=== PATIENT | female | born 1960 | race Caucasian/White ===

== ENCOUNTER → 2017-01-22 | Outpatient (CLI) | payer OTHER ==
[~2017-01-22] MED LIST: AVALIDE PO; AZULFIDINE500 M1 PO; BACTRIM DS TABL1 TA1 PO; CITALOPRAM HBR40 MG PO; COMBIVENT U/D3 M2 INH; DOXEPIN; DOXEPIN HCL50 MG PO; FISH OIL 1,0001 CAP PO; FISH OIL500 M1 PO; GLUCOPHAGE850 MG PO; HAIR, SKIN & N1 EACH PO; HYDRALAZINE HC100 MG PO; INVOKANA300 MG PO; IRON325 ( 65 ) PO; KEFLEX500 MG PO; LEVAQUIN PO; LEXAPRO PO; LISINOPRIL PO; LISINOPRIL-HCTZ1 T21 PO; LOPRESSOR PO; LORTAB 5/500 TA1 TA1 PO; METFORMIN PO; METHADONE PO; MULTI VITAMIN1 EACH PO; NEURONTIN PO; PHENERGAN25 MG PO; PRAVACHOL PO; PRAVASTATIN SOD40 MG PO; PRILOSEC40 MG PO; SYMBICORT INH; TAMIFLU75 M1 PO; TOPROL XL; TOPROL XL 50 MG50 M1 PO; ZESTRIL10 M1 PO; ZOLOFT; ZOLOFT PO; ZOLOFT50 MG PO
[2017-01-22 19:27] LABS: URINE APPEARANCE CLEAR; URINE BILIRUBIN NEG (NEG); URINE BLOOD NEG (NEG); URINE COLOR YELLOW; URINE GLUCOSE 500 MG/DL (NEG); URINE KETONE NEG (NEG); URINE LEUKOCYTE ESTERASE NEG (NEG); URINE NITRATE NEG (NEG); URINE PROTEIN NEG (NEG); URINE SPECIFIC GRAVITY 1.008 (1.003-1.035); URINE UROBILINOGEN 0.2 MG/DL (NEG)
[2017-01-22 19:32] LABS: EOSINOPHIL% 1.5 % (0.0-7.0); HEMATOCRIT 36.7 % (35.0-45.0); HEMOGLOBIN 12.1 gm/dL (12.0-16.0); LYMPHOCYTE% 33.9 % (17.0-45.0); MEAN CELL VOLUME 92.3 FL (83-96); MEAN CORPUSCULAR HEMOGLOBIN 30.3 PG (28-34); MEAN CORPUSCULAR HGB CONC 32.9 g/dL (30-36); MEAN PLATELET VOLUME 7.6 FL (6.5-11.5); MONOCYTE# 0.2 X10e3 (0-1.0); MONOCYTE% 7.2 % (3.0-12.0); NEUTROPHIL# 1.6 X10e3 (1.5-7.1); NEUTROPHIL% 56.4 % (40-75); PLATELET COUNT 170 X10e3 (140-420); RED BLOOD COUNT 3.98 X10e (3.90-5.30); RED CELL DISTRIBUTION WIDTH 14.6 % (11.0-15.5); WHITE BLOOD COUNT 2.9 X10e3 (4.0-10.5)
[2017-01-22 19:34] LABS: DIFF IND YES
[2017-01-22 20:07] LABS: PLATELET ESTIMATE NORMAL (NORMAL); RBC NORMAL YES
[2017-01-22 20:13] LABS: CALCIUM SERUM 9.6 mg/dL (8.4-10.2); GLOM FILT RATE Estimated 62.1 mL/min (>60); PHOSPHOROUS 2.8 mg/dL (2.5-4.6); POTASSIUM 3.7 mmol/L (3.5-5.1)
[2017-01-22 20:34] LABS: CREATININE,RANDOM URINE 15 mg/dL; TOTAL PROTEIN,RANDOM URINE <10 mg/dl (<10)
[2017-01-25 15:54] LABS: CALCIUM (PTHINTACT) 9.8 mg/dL (8.6-10.4)
== END | disposition home or self-care (01) ==
LOC: CLAB 18:48
PROVIDERS: Internal Medicine Nephrology
DX: E55.9 Vitamin D deficiency, unspecified (principal); N25.81 Secondary hyperparathyroidism of renal origin; N18.3 Chronic kidney disease, stage 3 (moderate); D63.1 Anemia in chronic kidney disease; R80.9 Proteinuria, unspecified
CPT/HCPCS: 36415; 80048; 81003; 82306; 82310; 82570; 82728; 83540; 83550; 83970; 84100; 84156; 85025

== ENCOUNTER → 2017-04-20 | Outpatient (CLI) | payer OTHER ==
[2017-04-20 19:38] LABS: HEMATOCRIT 39.9 % (35.0-45.0); HEMOGLOBIN 12.9 gm/dL (12.0-16.0); MEAN CELL VOLUME 93.1 FL (83-96); MEAN CORPUSCULAR HEMOGLOBIN 30.2 PG (28-34); MEAN CORPUSCULAR HGB CONC 32.4 g/dL (30-36); MEAN PLATELET VOLUME 7.8 FL (6.5-11.5); RED BLOOD COUNT 4.29 X10e (3.90-5.30); RED CELL DISTRIBUTION WIDTH 13.1 % (11.0-15.5); WHITE BLOOD COUNT 4.3 X10e3 (4.0-10.5)
[2017-04-20 19:52] LABS: CREATININE,RANDOM URINE 89 mg/dL; TOTAL PROTEIN,RANDOM URINE <10 mg/dl (<10)
[2017-04-20 20:36] LABS: BUN/CREATININE RATIO 11.42; CALCIUM SERUM 9.1 mg/dL (8.4-10.2); CREATININE SERUM 1.4 mg/dL (0.6-1.4); GLOM FILT RATE Estimated 41.3 mL/min (>60); POTASSIUM 3.6 mmol/L (3.5-5.1)
[2017-04-25 06:35] LABS: CALCIUM (PTHINTACT) 9.6 mg/dL (8.6-10.4)
== END | disposition home or self-care (01) ==
LOC: CLAB 19:13
PROVIDERS: Internal Medicine Nephrology
DX: E55.9 Vitamin D deficiency, unspecified (principal); N18.2 Chronic kidney disease, stage 2 (mild); D63.1 Anemia in chronic kidney disease; N25.81 Secondary hyperparathyroidism of renal origin
CPT/HCPCS: 36415; 80048; 82306; 82310; 82570; 82728; 83540; 83550; 83970; 84100; 84156; 85027

== ENCOUNTER → 2017-05-09 | Outpatient (CLI) | payer OTHER ==
--- NOTE | ~2017-05-09 | CR61 ---
[facility] A Service of [facility] RADIOLOGY TEXT RESULTS PATIENT: CRISTIAN BLACKBURN LOCATION: [facility] : 56 UNIT #: [id number] AGE: [address]: Pratibha Laws APRN SEX: F ORDER DR: [id number] [facility] [address] [place], [place] [address] [id number] O MR#: [id number] Acc #: [id number] NAME: CRISTIAN BLACKBURN : 1960 SEX: F STUDY DATE/TIME: 05/09/2017 16:07 UNIT: [facility] ROOM: STUDY DESCRIPTION: CR Cervical Spine Min 5 Views Attending Physician: Pratibha Laws A.P.R.N. Referring Physician: Pratibha Laws A.P.R.N. Ordering Physician: Pratibha Laws A.P.R.N. Primary Care Physician: Amy Primary Care Physician MEDICAL IMAGING REPORT This report is preliminary unless electronic signature is present EXAM Cervical spine 05/09/2017. INDICATIONS Chronic neck pain and stiffness for 6 months. Pain radiates into the shoulders. No trauma. TECHNIQUE 5 views of the cervical spine were obtained, including flexion/extension views. COMPARISON No comparison. FINDINGS The disc spaces are well maintained. There is multilevel facet arthropathy. There is mild grade 1 spondylolisthesis at C5-C6 which appears stable between flexion and extension. There is also some subtle spondylolisthesis at C4-C5 which is accentuated in flexion. Alignment is otherwise normal. No fractures are seen. Prevertebral soft tissues are normal. IMPRESSION Multilevel facet arthropathy. Mild stable-appearing spondylolisthesis at C5-C6. There is minimal spondylolisthesis at C4-C5, accentuated in flexion. Dictated by... Yg French Jr., M.D. THIS IS AN ELECTRONICALLY VERIFIED REPORT Yg Frnech Jr., M.D. at 05/10/2017 5:05 PM [facility] A Service of [facility] RADIOLOGY TEXT RESULTS PATIENT: CRISTIAN BLACKBURN [id number] 56 UNIT #: [id number] AGE: [address]: Pratibha Laws APRN SEX: F ORDER DR: Chace TD: 05/10/2017 16:45 JOB #: [id number] MEDICAL IMAGING REPORT Page 1 of 1 COPY
== END | disposition home or self-care (01) ==
LOC: CRAD 15:43
DX: M54.2 Cervicalgia (principal); M46.92 Unspecified inflammatory spondylopathy, cervical region; M43.12 Spondylolisthesis, cervical region
CPT/HCPCS: 72050